=== PATIENT | male | born 1955 | race Hispanic/Latino ===

== ENCOUNTER 2018-11-01 10:32 | Outpatient (CLI) | payer BC ==
--- NOTE | 2018-11-01 11:35 | MRI ---
MRI Lumbar Spine Noncontrast: HISTORY: Lumbar radiculopathy. Chronic back pain radiating down both legs. Symptoms been present for a couple of years. COMPARISON: None FINDINGS: The visualized retroperitoneal structures demonstrate a normal appearance. Conus medullaris is normal in morphology and terminates at the L1 level. There is increased epidural fat diffusely throughout the lumbar spine resulting in severe narrowing o f the thecal sac at all levels of the lumbar spine. L1-2: There is a minimal disc osteophyte complex which effaces the ventral aspect of the thecal sac. The neural foramina are patent. L2-3: There is a mild disc osteophyte complex which results in slight effacement of the anterior aspe ct of thecal sac. The neural foramina are patent. L3-4: There is a disc osteophyte complex which results in effacement of the thecal sac. There is mild right and moderate left-sided neural foraminal narrowing. L4-5: There is a mild disc osteophyte complex which effaces the ventral aspect of the thecal sac. Pro minent facet hypertrophic changes are seen at this level. There is mild bilateral neural foraminal narrowing. L5-S1: There is a disc osteophyte complex and facet hypertrophic changes with greater osteophyte form ation seen laterally and greater on the left. There is severe bilateral neural foraminal narrowing. The disc osteophyte complex does not contact the thecal sac. IMPRESSION: 1. Severe generalized narrowing of the thecal sac throughout the lumbar spine related to epidural lip omatosis. 2. Disc degenerative changes at multiple levels, greatest in the lower lumbar spine. There is severe bilateral neural foraminal narrowing at the L5-S1 level due to disc osteophyte complex and prominent facet hypertrophic changes.
== END 2018-11-01 10:33 | disposition home or self-care (01) ==
LOC: SCSMRI 10:32
PROVIDERS: ATTEND Anesthesiology
DX: M51.16 Intervertebral disc disorders with radiculopathy, lumbar region (principal); M25.78 Osteophyte, vertebrae; M48.07 Spinal stenosis, lumbosacral region
CPT/HCPCS: 72148

== ENCOUNTER 2019-02-28 05:14 | Emergency (ER) | payer BC ==
[2019-02-28 06:20] LABS: Bilirubin Negative (Negative); Blood, Urine Negative (Negative); Clarity Clear (Clear); Glucose, Urine (Dipstick) Normal (Negative); Leukocyte Negative Leu/uL (Negative); Nitrite Negative (Negative); Protein, Urine (Dipstick) Negative (Neg-Trace); Urobilinogen Normal mg/dL (Less than 2)
[2019-02-28 06:44] LABS: Anion Gap 11 mmol/L (10-20); BUN (Urea Nitrogen) 16 mg/dL (8.4-25.7); Calc. Creatinine Clearance 0 mL/min (70-130); Calcium 9.5 mg/dL (7.8-10.44); Carbon Dioxide 23 mmol/L (23-31); Chloride 103 mmol/L (98-107); Estimated GFR-MDRD 65; Glucose 125 mg/dL (80-115); Potassium 3.7 mmol/L (3.5-5.1); Sodium 133 mmol/L (136-145)
== END 2019-02-28 07:00 | disposition home or self-care (01) ==
LOC: ERS 05:14
DX: K64.9 Unspecified hemorrhoids (principal); R33.9 Retention of urine, unspecified; E78.5 Hyperlipidemia, unspecified; I10 Essential (primary) hypertension; Z79.82 Long term (current) use of aspirin; Z79.899 Other long term (current) drug therapy
CPT/HCPCS: 36415; 51702; 80048; 81003

== ENCOUNTER 2019-10-29 07:13 | Outpatient (CLI) | payer BC, OTHER ==
[2019-10-29 12:54] LABS: Anion Gap 13 mmol/L (10-20); BUN (Urea Nitrogen) 15 mg/dL (8.4-25.7); Calc. Creatinine Clearance 0 mL/min (70-130); Calcium 9.5 mg/dL (7.8-10.44); Carbon Dioxide 24 mmol/L (23-31); Chloride 103 mmol/L (98-107); Estimated GFR-MDRD 66; Glucose 107 mg/dL (80-115); Sodium 136 mmol/L (136-145)
[2019-10-29 17:40] LABS: SARS-CoV-2 MS2 Positive; SARS-CoV-2 N Gene Negative; SARS-CoV-2 S Gene Negative; SARS-CoV-2 orf1ab Negative
--- NOTE | 2019-10-29 21:14 | EKG ---
Test Reason : Blood Pressure : / mmHG Vent. Rate : 078 BPM Atrial Rate : 078 BPM P-R Int : 312 ms QRS Dur : 118 ms QT Int : 388 ms P-R-T Axes : 022 130 019 degrees QTc Int : 442 ms Sinus rhythm with 1st degree A-V block Right bundle branch block Left posterior fascicular block Bifascicular block Cannot rule out Inferior infarct (cited on or before 29-AUG-2013) Abnormal ECG When compared with ECG of 29-AUG-2013 02:34, No significant change was found Confirmed by Marcie GARCIA ([id number]) on 10/29/2019 9:13:55 PM Referred By: ADALID Confirmed By:Marcie GARCIA
== END 2019-10-29 07:14 | disposition home or self-care (01) ==
LOC: LABBT 07:13
PROVIDERS: ATTEND Neurological Surgery
DX: Z01.818 Encounter for other preprocedural examination (principal); Z11.59 Encounter for screening for other viral diseases; M48.061 Spinal stenosis, lumbar region without neurogenic claudication
CPT/HCPCS: 80048; 87635; 93005; 93010; U0003

== ENCOUNTER 2019-10-31 06:57 | Observation (INO) | payer BC ==
--- NOTE | 2019-10-31 07:16 | HP ---
HISTORY OF PRESENT ILLNESS: Mr. Geiger is a very pleasant 64-year-old gentleman, here today for evaluation of 2 years' worth of severe neurogenic claudication, foot pain, and foot dragging bilaterally. He has been seen by Dr. Liu who has been administering epidural steroid injections, which do help, but only for short periods of time. His MRI from [place] reveals severe central canal stenosis secondary to epidural lipomatosis around the L2-L3 level and down. He has severe bilateral L5 foraminal stenosis and is here to discuss potential surgery. PHYSICAL EXAMINATION: He is alert and oriented x3. Gait is slow and unsteady. He has 5/5 strength in all movements of the bilateral lower extremities other than dorsiflexion, which is 5- on the right and 4+ on the left. He is unable to heel walk. PAST MEDICAL HISTORY: Significant for hypertension. PAST SURGICAL HISTORY: None. CURRENT MEDICATIONS: 1. Aspirin. 2. Spironolactone. 3. Metoprolol. 4. Lyrica. 5. Losartan. 6. Hydrochlorothiazide. ALLERGIES: TO LISINOPRIL. ASSESSMENT: Lumbar spinal stenosis with neurogenic claudication. PLAN: Dr. Hardy met with the patient, reviewed imaging, advocated for an L3 through S1 decompression. He explained to the patient the risks, benefits, and alternatives to the procedure. The patient expressed understanding and elected to move forward with surgery as discussed. I do believe the patient is mentally competent and capable of making medical decisions for himself. We will move forward with surgery as planned. Job ID: [id number]
[2019-10-31] MEDS ORDERED: Tamsulosin HCl 0.4 MG CAP ONE ×2 (09:52→18:28)
[2019-10-31] MEDS ORDERED: EPINEPHrine 1 MG/ML AMP ONE (09:54)
[2019-10-31] MEDS ORDERED: Bupivacaine PF 0.5% 30 ML VIAL ONE (09:54)
[2019-10-31] MEDS ORDERED: Fentanyl 100 MCG/2 ML VIAL ONE ×4 (09:58→12:53)
[2019-10-31] MEDS ORDERED: Lidocaine 2% Jelly 5 ML TUBE ONE (09:58)
[2019-10-31] MEDS ORDERED: HYDROmorphone 0.5 MG/0.5 ML SYRINGE ONE ×2 (13:05→13:17)
[2019-10-31] MEDS ORDERED: HYDROcodone/Acetaminophen 5/325 mg Tablet ONE (13:24)
[2019-10-31] MEDS ORDERED: Rocuronium Bromide 10 MG/ML (10ML VIAL) ONE (15:40)
[2019-10-31] MEDS ORDERED: Ondansetron PF 4 MG/2 ML Vial ONE (15:40)
[2019-10-31] MEDS ORDERED: PROPOFOL 200 MG/20 ML VIAL ONE (15:40)
[2019-10-31] MEDS ORDERED: Succinylcholine Chloride 20 MG/ML 10 ml SYRINGE FS ONE (15:40)
[2019-10-31] MEDS ORDERED: Lidocaine 1% PF 5 ML VIAL ONE (15:40)
[2019-10-31] MEDS ORDERED: EPHEDRINE 25 MG/5 ML SYRINGE ONE (15:40)
[2019-10-31] MEDS ORDERED: PHENYLEPHRINE-NS 100 MCG/ML 10 ML SYRINGE ONE (15:40)
[2019-10-31] MEDS ORDERED: Dexamethasone 20 MG/5 ML VIAL ONE (15:40)
[2019-10-31] MEDS ORDERED: Glycopyrrolate 0.2 MG/ML 5 ML SYRINGE ONE (15:40)
[2019-10-31] MEDS ORDERED: Cyclobenzaprine 10 MG TAB ONE (16:13)
[2019-10-31] MEDS ORDERED: Furosemide 40 MG TAB PO SCH (16:45)
[2019-10-31] MEDS ORDERED: Bisacodyl 10 MG SUPP PR PRN (19:58)
[2019-10-31] MEDS ORDERED: Acetaminophen 650 MG Suppository PR PRN (19:58)
[2019-10-31] MEDS ORDERED: Acetaminophen 325 MG TAB PO PRN (19:58)
[2019-10-31] MEDS ORDERED: diphenhydrAMINE 50 MG/ML VIAL IVP PRN (19:58)
[2019-10-31] MEDS ORDERED: Morphine 4 MG/ML VIAL SLOW IVP PRN (19:58)
[2019-10-31] MEDS ORDERED: Mag-Al 1200 mg/1200 mg/30 ML UDCUP PO PRN (19:58)
[2019-10-31] MEDS ORDERED: Acetaminophen/Codeine 30-300mg Tablet PO PRN (19:58)
[2019-10-31] MEDS ORDERED: Morphine 2 MG/ML SYRINGE SLOW IVP PRN (19:58)
[2019-10-31] MEDS ORDERED: Cyclobenzaprine 10 MG TAB PO PRN (19:58)
[2019-10-31] MEDS ORDERED: diphenhydrAMINE 25 MG CAP PO PRN (19:58)
[2019-10-31] MEDS ORDERED: Ondansetron PF 4 MG/2 ML Vial SLOW IVP PRN (20:00)
[2019-10-31] MEDS ORDERED: TADALAFIL 20 MG PO PRN (20:41)
[2019-10-31] MEDS ORDERED: traMADol HCl 50 MG TAB PO PRN ×2 (20:42)
[2019-10-31] MEDS: Sodium Chloride 0.9% 1,000 ML IV SCH (21:12)
[2019-10-31] MEDS: CEFAZOLIN 2 GM in Premix Bag 1 BAG IVPB SCH (21:13)
[2019-10-31] MEDS: Acetaminophen/Codeine 30-300mg Tablet PO PRN (23:30)
[2019-11-01 00:45] VITALS: BMI 40.2
[2019-11-01] MEDS ORDERED: Tamsulosin HCl 0.4 MG CAP PO SCH ×2 (06:00→09:00)
[2019-11-01] MEDS: CEFAZOLIN 2 GM in Premix Bag 1 BAG IVPB SCH (06:04)
[2019-11-01] MEDS ORDERED: Spironolactone 25 MG TAB PO SCH (08:00)
[2019-11-01] MEDS ORDERED: Metoprolol Tartrate 50 MG TAB PO SCH (09:00)
[2019-11-01] MEDS ORDERED: Losartan 25 MG TAB PO SCH (09:00)
[2019-11-01] MEDS ORDERED: Furosemide 40 MG TAB PO SCH (09:00)
[2019-11-01] MEDS: Sodium Chloride 0.9% 1,000 ML IV SCH (09:34)
[2019-11-01] MEDS ORDERED: Bisacodyl 5 MG TAB PO PRN (10:05)
[2019-11-01] MEDS: Acetaminophen/Codeine 30-300mg Tablet PO PRN (10:30)
[2019-11-01 13:01] VITALS: BP 112/75; TEMP 98.3
--- NOTE | 2019-11-01 13:07 | DIS ---
DATE OF ADMISSION: 10/31/2019 DATE OF DISCHARGE: 11/01/2019 Mr. Geiger is postop day #1, following lumbar decompression on October 31, 2019, by Dr. Yung Hardy. ADMISSION DIAGNOSES: Status post lumbar decompression and spinal stenosis. DISCHARGE DIAGNOSES: Status post lumbar decompression and spinal stenosis. HOSPITAL COURSE: Mr. Geiger had a high output drainage via JOEL drain after surgery yesterday. This ultimately tapered to under 10 mL/hour and the patient was tolerating pain and well discharged home in good condition with outpatient followup planned in 2 weeks. Job ID: [id number]
--- NOTE | 2019-11-02 11:29 | OP ---
DATE OF PROCEDURE: 10/31/2019 CHALK TESTER: Horacio Ang PA-C INDICATION: Pain. DIAGNOSIS: Lumbar stenosis secondary to epidural lipomatosis. PROCEDURES: L3 through S1 decompression. ANESTHESIA: General. DESCRIPTION OF PROCEDURE: The patient was brought into the operating room and placed under general anesthesia. He was flipped from the supine to prone position on the operating room table. A linear incision was planned spanning L3-S1. After prepping and draping and after an appropriate preoperative pause, the incision was created. The soft tissues were swept away from midline. Self-retaining retractors were placed in the wound for optimal exposure. After confirming the appropriate level with C-arm fluoroscopy, an Adson rongeur was used to remove the spinous process of L4, L5, and inferior aspect of L3. High-speed cutting drill bit as well as 2, 3, and 4 mm Kerrisons were then used to perform a laminectomy extending from the inferior aspect of L3 through the top of S1. There was significant degree of epidural lipomatosis present, which was carefully removed until the thecal sac was well decompressed. The wound was irrigated. Hemostasis was maintained throughout. A subfascial drain was placed and brought out through a separate puncture site from within the wound. The wound was then closed in anatomic layers, and a pressure dressing was applied. There were no known procedural complications. Job ID: [id number]
== END 2019-11-01 13:37 | disposition home or self-care (01) ==
LOC: SDC 06:57 → SURG A 18:39
PROVIDERS: ADMIT Neurological Surgery; ATTEND Neurological Surgery
PROC: 01NB0ZZ Release Lumbar Nerve, Open Approach (ICD-10-PCS; principal; 2019-10-31)
DX: E88.2 Lipomatosis, not elsewhere classified (principal); M48.062 Spinal stenosis, lumbar region with neurogenic claudication; I10 Essential (primary) hypertension; Z79.82 Long term (current) use of aspirin; Z79.899 Other long term (current) drug therapy
CPT/HCPCS: 76000; 96365; 96376; G0378; J0171; J0690; J1100; J1170; J2001; J2405; J2704; J3010; S0020

== ENCOUNTER 2019-12-16 17:04 | Emergency (ER) | payer BC, SELFPAY ==
--- NOTE | 2019-12-16 17:34 | RAD ---
EXAM: CHEST ONE VIEW HISTORY: Bilateral lower extremity swelling for 2 days COMPARISON: 10/06/2016 FINDINGS: Cardiac silhouette is magnified by projection but does appear mildly enlarged. The pulmonary vasculat ure is within normal limits. The lungs are clear. Degenerative changes are seen in the spine. Chest is stable compared to prior exam. IMPRESSION: No acute cardiopulmonary process.
[2019-12-16 17:38] LABS: #Eosinphils 0.2 thou/uL (0.0-0.7); #Lymphocytes 1.2 thou/uL (1.20-3.40); #Monocytes 0.8 thou/uL (0.11-0.59); #Neutrophils 4.5 thou/uL (1.40-6.50); %Basophils 0.6 % (0.0-1.0); %Eosinophils 2.4 % (0.0-10.0); %Lymphocytes 18.3 % (21.0-51.0); %Monocytes 11.6 % (0.0-10.0); %Neutrophils 67.2 % (42.0-75.0); Hemoglobin 12.9 g/dL (14.0-18.0); Mean Corpuscular HGB CONC 34.8 g/dL (32.0-36.0); Mean Corpuscular Hemoglobin 30.4 pg (27.0-31.0); Mean Corpuscular Volume 87.4 fL (78.0-98.0); Mean Platelet Volume 8.5 fL (7.4-10.4); Platelet Count 257 thou/uL (130-400); RBC Distribution Width 12.1 % (11.5-14.5); Red Blood Cell (RBC) Count 4.25 mill/uL (4.70-6.10); White Blood Cell (WBC) Count 6.7 thou/uL (4.8-10.8)
[2019-12-16 18:00] LABS: ALT (SGPT) 21 U/L (8-55); AST (SGOT) 18 U/L (5-34); Albumin 4.4 g/dL (3.4-4.8); Alkaline Phosphatase 123 U/L (40-110); Anion Gap 13 mmol/L (10-20); BUN (Urea Nitrogen) 19 mg/dL (8.4-25.7); Bilirubin, Total 0.4 mg/dL (0.2-1.2); Calc. Creatinine Clearance 0 mL/min (70-130); Calcium 9.3 mg/dL (7.8-10.44); Carbon Dioxide 27 mmol/L (23-31); Chloride 99 mmol/L (98-107); Estimated GFR-MDRD 58; Globulin 3.7 g/dL (2.4-3.5); Glucose 106 mg/dL (80-115); Potassium 3.8 mmol/L (3.5-5.1); Protein, Total 8.1 g/dL (5.8-8.1); Sodium 135 mmol/L (136-145)
== END 2019-12-16 18:45 | disposition home or self-care (01) ==
LOC: ERS 17:04
DX: R60.0 Localized edema (principal); I10 Essential (primary) hypertension; E78.5 Hyperlipidemia, unspecified; G62.9 Polyneuropathy, unspecified; Z79.82 Long term (current) use of aspirin; Z79.899 Other long term (current) drug therapy
CPT/HCPCS: 36415; 71045; 80053; 83880; 84484; 85025; 93005; 94760

== ENCOUNTER 2023-10-18 14:49 | Emergency (ER) | payer MEDICARE ==
[~2023-10-18 14:49] MED LIST: Iopamidol-370 76% 500 ML MDV (1 ML CHARGE) ONE
[2023-10-18] MEDS ORDERED: Ondansetron PF 4 MG/2 ML Vial ONE (16:13)
[2023-10-18] MEDS ORDERED: Morphine 4 MG/ML VIAL ONE ×2 (16:13→20:19)
[2023-10-18 16:40] LABS: #Basophils 0.04 10x3/uL (0.0-0.2); %Basophils 0.5 % (0.0-1.0); %Eosinophils 1.6 % (0.0-10.0); %Lymphocytes 11.2 % (21.0-51.0); Hematocrit 44.4 % (42.0-52.0); Mean Corpuscular HGB CONC 33.8 g/dL (32.0-36.0); Mean Corpuscular Hemoglobin 28.8 pg (27.0-31.0); Mean Corpuscular Volume 85.4 fL (78.0-98.0); Mean Platelet Volume 10.4 fL (7.4-10.4); Platelet Count 227 10x3/uL (130-400); RBC Distribution Width 13.2 % (11.5-14.5)
[2023-10-18 17:02] LABS: ALT (SGPT) 29 U/L (8-55); AST (SGOT) 25 U/L (5-34); Alkaline Phosphatase 94 U/L (40-110); Anion Gap 16 mmol/L (10-20); BUN (Urea Nitrogen) 13 mg/dL (8.4-25.7); Bilirubin, Total 0.4 mg/dL (0.2-1.2); Calc. Creatinine Clearance 0 mL/min (70-130); Calcium 9.8 mg/dL (7.8-10.44); Carbon Dioxide 26 mmol/L (23-31); Chloride 95 mmol/L (98-107); Estimated GFR 88; Glucose 128 mg/dL (80-115); Potassium 3.9 mmol/L (3.5-5.1); Sodium 133 mmol/L (136-145)
[2023-10-18] MEDS ORDERED: Morphine 2 MG/ML VIAL ONE (20:19)
== END 2023-10-18 20:30 | disposition home or self-care (01) ==
LOC: ERS 14:49
DX: S22.32XA Fracture of one rib, left side, initial encounter for closed fracture (principal); I10 Essential (primary) hypertension; E78.5 Hyperlipidemia, unspecified; E11.40 Type 2 diabetes mellitus with diabetic neuropathy, unspecified; W07.XXXA Fall from chair, initial encounter; Z87.891 Personal history of nicotine dependence; Z79.82 Long term (current) use of aspirin; Z79.899 Other long term (current) drug therapy
CPT/HCPCS: 36415; 70450; 71260; 72125; 74177; 80053; 85025; 93005; 96374; 96375; 96376; J2270; J2272; J2405; Q9967